=== PATIENT | male | born 1950 | race Caucasian/White ===

== ENCOUNTER 2017-07-09 00:37 | Emergency (ER) | payer OTHER ==
[~2017-07-09] VITALS: Ht 195.6 cm; Wt 67.4 kg
[~2017-07-09 00:37] MED LIST: ABILIFY5 MG PO; ALLERGY MEDICAT25 M1 PO; ARTIFICIAL TEAR15 M1 BOTH EYES; ATIVAN1 MG PO; ATORVASTATIN CA10 MG PO; CYANOCOBALAM1000 MCG PO; DONEPEZIL HCL10 MG PO; FLORASTOR250 MG PO; GABAPENTIN100 MG PO; KLOR-CON M2020 MEQ PO; LAMOTRIGINE100 MG PO; MOMETASONE FURO17 GM BOTH NARES; THERA TABLET400 MCG PO; TRAZODONE HCL50 MG PO
[2017-07-09 06:00] VITALS: BP 122/86
== END 2017-07-09 06:02 ==
LOC: EME 00:37
DX: S09.90XA Unspecified injury of head, initial encounter (principal); S30.810A Abrasion of lower back and pelvis, initial encounter; S20.411A Abrasion of right back wall of thorax, initial encounter; W19.XXXA Unspecified fall, initial encounter; Z91.81 History of falling; F03.90 Unspecified dementia, unspecified severity, without behavioral disturbance, psychotic disturbance, mood disturbance, and anxiety; Y92.129 Unspecified place in nursing home as the place of occurrence of the external cause; D69.6 Thrombocytopenia, unspecified; K58.9 Irritable bowel syndrome, unspecified; F32.9 Major depressive disorder, single episode, unspecified; F41.9 Anxiety disorder, unspecified; K21.9 Gastro-esophageal reflux disease without esophagitis; E78.5 Hyperlipidemia, unspecified
CPT/HCPCS: 70450; 72070; 72100; 72170; J1630